=== PATIENT | male | born 1935 | race Caucasian/White ===

== ENCOUNTER 2018-09-17 11:59 | Inpatient (IN) ==
[2018-09-17] MEDS ORDERED: SODIUM CHLORIDE 0.9% 500 ML IV STA ×2 (12:25→13:55)
[2018-09-17 12:47] LABS: Apearance,Urine CLEAR (Clear); Bacteria,Urine Occasional /HPF (Few); Bilirubin,Urine Negative (Negative); Blood, Urine Moderate mg/dL (Negative); Glucose,Urine (UA) Negative (Negative); Ketones,Urine 5 mg/dL (Negative); Nitrite,Urine Negative (Negative); Protein,Urine >=500 MG/DL; RBC,Urine 22 /HPF (0-4); Urine Color Yellow (Yellow); Urine Specific Gravity 1.017 (1.001-1.035); WBC,Urine <1 /HPF (0-6)
[2018-09-17 13:05] LABS: Basophils % 0.1 % (0.0-0.8); Hematocrit 42.6 VOL% (42.0-52.0); Hemoglobin 14.3 GM/DL (14.0-18.0); Immature Granulocytes % 0.3 %; Immature Granulocytes Absolute 0.03 #; Lymphocytes # 0.6 10*3/uL (1.4-4.0); Mean Corpuscular HGB Conc 33.6 GM/DL (32-36); Mean Corpuscular Hemoglobin 32 PG (27-34); Mean Platelet Volume 9.9 FL (9.6-12.0); Monocytes # 0.9 10*3/uL (0.11-0.8); Neutrophils % 84.6 % (38.7-73.9); Platelet Count 120 T/CUMM (130-400); Red Blood Count 4.53 MC/CUMM (3.8-5.5); Red Cell Distribution Width 13.3 % (9.3-17.3); White Blood Count 9.4 T/CUMM (4-12)
[2018-09-17 13:23] LABS: Albumin 3.9 G/DL (3.4-5.0); Bilirubin,Total 1.4 MG/DL (0.2-1.0); Calcium 8.9 MG/DL (8.5-10.1); Osmolality,Calculated 275.7 MOS/KG (273-304); Potassium 3.6 MMOL/L (3.5-5.1)
[2018-09-17] MEDS ORDERED: ACETAMINOPHEN 325 MG TABLET PO PRN (15:53)
[2018-09-17] MEDS ORDERED: ONDANSETRON 4 MG/2 ML VIAL IV PRN (15:53)
[2018-09-17] MEDS ORDERED: KETOCONAZOLE 2% CREAM 30 GM TUBE TOP PRN (15:58)
[2018-09-17] MEDS ORDERED: TRIAMCINOLONE 0.1% CREAM 15 GM TUBE TOP PRN (15:58)
[2018-09-17] MEDS: LISINOPRIL 20 MG TABLET PO SCH (18:44)
[2018-09-17] MEDS: DILTIAZEM CD 180 MG CAPSULE PO SCH (18:47)
[2018-09-17 19:09] LABS: Troponin I 0.406 NG/ML (0.00-0.045)
[2018-09-17] MEDS ORDERED: ENOXAPARIN 40 MG/0.4 ML SYRINGE SUBCUT SCH (21:00)
[2018-09-17] MEDS: SODIUM CHLORIDE 0.9% 1,000 ML IV SCH (21:46)
[2018-09-17 23:19] LABS: Troponin I 0.519 NG/ML (0.00-0.045)
[2018-09-18 07:27] LABS: Albumin 2.6 G/DL (3.4-5.0); Bilirubin,Total 0.8 MG/DL (0.2-1.0); Calcium 7.5 MG/DL (8.5-10.1); Osmolality,Calculated 277.5 MOS/KG (273-304); Potassium 3.3 MMOL/L (3.5-5.1); Total Protein 5.6 G/DL (6.4-8.3)
[2018-09-18 07:41] LABS: Troponin I 0.436 NG/ML (0.00-0.045)
[2018-09-18] MEDS: SODIUM CHLORIDE 0.9% 1,000 ML IV SCH ×2 (08:43→23:58)
[2018-09-18] MEDS: MIRTAZAPINE 30 MG TABLET PO SCH (09:11)
[2018-09-18] MEDS: LISINOPRIL 20 MG TABLET PO SCH (09:11)
[2018-09-18] MEDS: PANTOPRAZOLE 40 MG TABLET PO SCH (09:11)
[2018-09-18] MEDS: DILTIAZEM CD 180 MG CAPSULE PO SCH (10:31)
[2018-09-18] MEDS: LINACLOTIDE 145 MCG CAPSULE PO SCH (10:39)
[2018-09-18] MEDS: POTASSIUM CHLORIDE RIDER 10 MEQ in PREMIX 1 EACH IV SCH ×4 (13:36→18:05)
[2018-09-18] MEDS ORDERED: POTASSIUM CHLORIDE RIDER 10 MEQ in PREMIX 1 EACH IV SCH (18:00)
[2018-09-18] MEDS: FINASTERIDE 5 MG TABLET PO SCH (20:51)
[2018-09-19 04:36] LABS: Basophils % 0.3 % (0.0-0.8); Eosinophils # 0.2 10*3/uL (0.0-0.87); Eosinophils % 2.4 % (0.00-10.9); Hematocrit 35.5 VOL% (42.0-52.0); Hemoglobin 11.9 GM/DL (14.0-18.0); Immature Granulocytes % 0.3 %; Immature Granulocytes Absolute 0.02 #; Lymphocytes # 1.5 10*3/uL (1.4-4.0); Lymphocytes % 22.3 % (21.2-54.2); Mean Corpuscular HGB Conc 33.5 GM/DL (32-36); Mean Corpuscular Hemoglobin 32 PG (27-34); Mean Corpuscular Volume 94.7 FL (87-102); Mean Platelet Volume 10.3 FL (9.6-12.0); Monocytes # 0.5 10*3/uL (0.11-0.8); Monocytes % 6.8 % (1.7-12.7); Neutrophils # 4.6 10*3/uL (1.4-7.4); Neutrophils % 67.9 % (38.7-73.9); Red Blood Count 3.75 MC/CUMM (3.8-5.5); Red Cell Distribution Width 13.6 % (9.3-17.3); White Blood Count 6.7 T/CUMM (4-12)
[2018-09-19 04:49] LABS: Platelet Count 95 T/CUMM (130-400)
[2018-09-19 05:17] LABS: Calcium 7.4 MG/DL (8.5-10.1); Osmolality,Calculated 278.5 MOS/KG (273-304); Potassium 3.6 MMOL/L (3.5-5.1)
[2018-09-19 06:20] LABS: Ovalocytes 1+; Platelet Estimate Adequate
[2018-09-19] MEDS: MIRTAZAPINE 30 MG TABLET PO SCH (09:15)
[2018-09-19] MEDS: PANTOPRAZOLE 40 MG TABLET PO SCH (09:15)
[2018-09-19] MEDS: LISINOPRIL 20 MG TABLET PO SCH (09:15)
[2018-09-19] MEDS: LINACLOTIDE 145 MCG CAPSULE PO SCH (09:19)
[2018-09-19] MEDS: SODIUM CHLORIDE 0.9% 1,000 ML IV SCH (10:14)
[2018-09-19] MEDS: amLODIPine 5 MG TABLET PO SCH (11:08)
[2018-09-19] MEDS ORDERED: ERGOCALCIFEROL 50,000 UNIT CAPSULE PO SCH (14:30)
[2018-09-19] MEDS: FINASTERIDE 5 MG TABLET PO SCH (20:57)
[2018-09-19] MEDS: TAMSULOSIN 0.4 MG CAPSULE PO SCH (20:57)
[2018-09-20 05:45] LABS: Free T4 (Free Thyroxine) 1.03 NG/DL (0.76-1.46)
[2018-09-20] MEDS: LISINOPRIL 20 MG TABLET PO SCH (08:25)
[2018-09-20] MEDS: PANTOPRAZOLE 40 MG TABLET PO SCH (08:25)
[2018-09-20] MEDS: amLODIPine 5 MG TABLET PO SCH (08:25)
[2018-09-20] MEDS: MIRTAZAPINE 30 MG TABLET PO SCH (08:25)
[2018-09-20] MEDS: LINACLOTIDE 145 MCG CAPSULE PO SCH (08:28)
[2018-09-20] MEDS: TRIAMCINOLONE 0.1% CREAM 15 GM TUBE TOP SCH ×2 (13:50→21:14)
[2018-09-20] MEDS ORDERED: TUBERCULIN SKIN TEST 0.1 ML SYRINGE INTRADERM ONE (15:18)
[2018-09-20] MEDS: hydrALAZINE 25 MG TABLET PO SCH ×2 (15:42→21:12)
[2018-09-20] MEDS: FINASTERIDE 5 MG TABLET PO SCH (21:12)
[2018-09-20] MEDS: TAMSULOSIN 0.4 MG CAPSULE PO SCH (21:12)
[2018-09-21 06:38] LABS: Calcium 8.8 MG/DL (8.5-10.1)
[2018-09-21 06:44] LABS: Basophils % 0.4 % (0.0-0.8); Eosinophils # 0.5 10*3/uL (0.0-0.87); Eosinophils % 5.8 % (0.00-10.9); Hematocrit 43.6 VOL% (42.0-52.0); Immature Granulocytes % 0.4 %; Immature Granulocytes Absolute 0.03 #; Lymphocytes # 1.7 10*3/uL (1.4-4.0); Lymphocytes % 21.5 % (21.2-54.2); Mean Corpuscular Hemoglobin 31 PG (27-34); Mean Corpuscular Volume 93.8 FL (87-102); Monocytes # 0.6 10*3/uL (0.11-0.8); Monocytes % 7.3 % (1.7-12.7); Neutrophils % 64.6 % (38.7-73.9); Platelet Count 113 T/CUMM (130-400); Red Cell Distribution Width 13.6 % (9.3-17.3); White Blood Count 7.7 T/CUMM (4-12)
[2018-09-21 06:45] LABS: Hemoglobin 14.4 GM/DL (14.0-18.0); Red Blood Count 4.65 MC/CUMM (3.8-5.5)
[2018-09-21 08:20] VITALS: BP 149/69
[2018-09-21] MEDS ORDERED: ASPIRIN EC 81 MG TABLET PO SCH (09:00)
[2018-09-21] MEDS: MIRTAZAPINE 30 MG TABLET PO SCH (09:20)
[2018-09-21] MEDS: hydrALAZINE 25 MG TABLET PO SCH (09:20)
[2018-09-21] MEDS: LISINOPRIL 20 MG TABLET PO SCH (09:20)
[2018-09-21] MEDS: amLODIPine 5 MG TABLET PO SCH (09:20)
[2018-09-21] MEDS: TRIAMCINOLONE 0.1% CREAM 15 GM TUBE TOP SCH (09:22)
[2018-09-21] MEDS: LINACLOTIDE 145 MCG CAPSULE PO SCH (09:22)
[2018-09-21] MEDS ORDERED: ROSUVASTATIN 20 MG TABLET PO SCH (21:00)
== END 2018-09-21 14:10 | disposition swing bed (61) | DRG 726 ==
LOC: EDUNIT# → EDBD → N.ED 11:59 → N.EDINP 15:20 → SUATTDRO 15:20 → N.5E 17:45
PROVIDERS: ADMIT Internal Medicine; ATTEND Internal Medicine

== ENCOUNTER 2019-01-18 16:25 | Inpatient (IN) ==
[2019-01-18] MEDS ORDERED: MAGNESIUM SULF RIDER 4 GM in PREMIX 1 EACH IV PRN (17:30)
[2019-01-18] MEDS ORDERED: ACETAMINOPHEN 325 MG TABLET PO PRN (17:30)
[2019-01-18] MEDS ORDERED: DOCUSATE SODIUM 100 MG CAPSULE PO PRN (17:30)
[2019-01-18] MEDS ORDERED: ZALEPLON 5 MG CAPSULE PO PRN (17:30)
[2019-01-18] MEDS ORDERED: MAGNESIUM SULF RIDER 2 GM in PREMIX 1 EACH IV PRN (17:30)
[2019-01-18 18:29] LABS: Basophils # 0.1 10*3/uL (0.0-0.2); Basophils % 0.7 % (0.0-0.8); Eosinophils # 1.1 10*3/uL (0.0-0.87); Eosinophils % 14.8 % (0.00-10.9); Hematocrit 38.8 VOL% (42.0-52.0); Hemoglobin 12.7 GM/DL (14.0-18.0); Immature Granulocytes % 0.1 %; Immature Granulocytes Absolute 0.01 #; Lymphocytes # 1.9 10*3/uL (1.4-4.0); Lymphocytes % 25.2 % (21.2-54.2); Mean Corpuscular HGB Conc 32.7 GM/DL (32-36); Mean Corpuscular Volume 95.1 FL (87-102); Mean Platelet Volume 10.3 FL (9.6-12.0); Neutrophils % 52.2 % (38.7-73.9); Platelet Count 105 T/CUMM (130-400); Red Blood Count 4.08 MC/CUMM (3.8-5.5); Red Cell Distribution Width 13.7 % (9.3-17.3); White Blood Count 7.6 T/CUMM (4-12)
[2019-01-18 18:48] LABS: Albumin 3.9 G/DL (3.4-5.0); Bilirubin,Total 0.6 MG/DL (0.2-1.0); Osmolality,Calculated 278.4 MOS/KG (273-304); Total Protein 7.8 G/DL (6.4-8.3)
[2019-01-18 19:11] LABS: Eosinophils 13 % (0-10); Lymphocytes 29 % (20-55); Segmented Neutrophils 50 % (50-85); Total Cells Counted 100
[2019-01-18 19:12] LABS: Anisocytosis 1+; Atypical Lymphocytes 1+; Elliptocytes Few; Macrocytosis 1+; Platelet Estimate Normal; Poikilocytosis Few
[2019-01-18] MEDS: PIPERACILLIN/TAZOBACTAM 3,375 MG in SODIUM CHLORIDE 0.9% 100 ML IV SCH (20:33)
[2019-01-18 21:19] LABS: Apearance,Urine CLEAR (Clear); Bilirubin,Urine Negative (Negative); Blood, Urine Small mg/dL (Negative); Glucose,Urine (UA) Negative (Negative); Ketones,Urine Negative (Negative); Mucus,Urine Occasional /LPF (Occasional); Nitrite,Urine Negative (Negative); Protein,Urine 30 MG/DL; RBC,Urine 8 /HPF (0-4); Urine Color Yellow (Yellow); Urine Specific Gravity 1.014 (1.001-1.035); Urine Urobilinogen < 2.0 EU/DL (0.2-1.0)
[2019-01-19] MEDS: VANCOMYCIN INJ 1,000 MG in SODIUM CHLORIDE 0.9% 250 ML IV SCH ×3 (00:16→23:05)
[2019-01-19] MEDS: PIPERACILLIN/TAZOBACTAM 3,375 MG in SODIUM CHLORIDE 0.9% 100 ML IV SCH ×3 (03:48→21:01)
[2019-01-19] MEDS ORDERED: LINACLOTIDE 145 MCG CAPSULE PO PRN (07:16)
[2019-01-19] MEDS ORDERED: ACETAMINOPHEN 325 MG TABLET PO PRN (07:16)
[2019-01-19] MEDS ORDERED: KETOCONAZOLE 2% CREAM 30 GM TUBE TOP PRN (07:16)
[2019-01-19] MEDS ORDERED: ERGOCALCIFEROL 50,000 UNIT CAPSULE PO SCH (07:30)
[2019-01-19] MEDS: TAMSULOSIN 0.4 MG CAPSULE PO SCH ×2 (10:33→21:00)
[2019-01-19] MEDS: amLODIPine 5 MG TABLET PO SCH (10:33)
[2019-01-19] MEDS: MULTIVITAMIN (OCUVITE) TABLET PO SCH ×2 (10:33→21:00)
[2019-01-19] MEDS: ONDANSETRON 4 MG/2 ML VIAL IV PRN (10:34)
[2019-01-19] MEDS: hydrALAZINE 25 MG TABLET PO SCH ×3 (10:34→21:00)
[2019-01-19] MEDS: ASCORBIC ACID 500 MG TABLET PO SCH ×2 (10:34→21:00)
[2019-01-19] MEDS ORDERED: diphenhydrAMINE CAP 25 MG CAPSULE PO PRN (16:37)
[2019-01-19] MEDS ORDERED: MAGNESIUM HYDROXIDE SUSP 30 ML UDCUP PO PRN (16:37)
[2019-01-19] MEDS: MIRTAZAPINE 30 MG TABLET PO SCH (20:59)
[2019-01-19] MEDS: ASPIRIN EC 81 MG TABLET PO SCH (21:00)
[2019-01-19] MEDS: ROSUVASTATIN 20 MG TABLET PO SCH (21:00)
[2019-01-19] MEDS: FINASTERIDE 5 MG TABLET PO SCH (21:00)
[2019-01-19] MEDS: LISINOPRIL 20 MG TABLET PO SCH (21:01)
[2019-01-20] MEDS: PIPERACILLIN/TAZOBACTAM 3,375 MG in SODIUM CHLORIDE 0.9% 100 ML IV SCH ×3 (03:14→22:15)
[2019-01-20 05:58] LABS: Basophils # 0.1 10*3/uL (0.0-0.2); Basophils % 0.8 % (0.0-0.8); Eosinophils # 1.3 10*3/uL (0.0-0.87); Eosinophils % 16.8 % (0.00-10.9); Hematocrit 36.5 VOL% (42.0-52.0); Hemoglobin 11.7 GM/DL (14.0-18.0); Immature Granulocytes % 0.3 %; Immature Granulocytes Absolute 0.02 #; Lymphocytes # 1.8 10*3/uL (1.4-4.0); Lymphocytes % 22.6 % (21.2-54.2); Mean Corpuscular HGB Conc 32.1 GM/DL (32-36); Mean Corpuscular Volume 95.8 FL (87-102); Mean Platelet Volume 10.8 FL (9.6-12.0); Monocytes % 7.3 % (1.7-12.7); Neutrophils % 52.2 % (38.7-73.9); Platelet Count 111 T/CUMM (130-400); Red Blood Count 3.81 MC/CUMM (3.8-5.5); Red Cell Distribution Width 13.5 % (9.3-17.3)
[2019-01-20 06:34] LABS: Calcium 8.8 MG/DL (8.5-10.1); Osmolality,Calculated 288.7 MOS/KG (273-304)
[2019-01-20 06:45] LABS: Band Neutrophils 1 % (0-10); Segmented Neutrophils 54 % (50-85); Total Cells Counted 100
[2019-01-20 06:46] LABS: Eosinophils 12 % (0-10); Hypochromasia 2+; Lymphocytes 25 % (20-55); Platelet Estimate Decreased
[2019-01-20] MEDS: TAMSULOSIN 0.4 MG CAPSULE PO SCH ×2 (08:50→21:18)
[2019-01-20] MEDS: POTASSIUM CHLORIDE 20 MEQ TABLET PO PRN (08:50)
[2019-01-20] MEDS: MULTIVITAMIN (OCUVITE) TABLET PO SCH ×2 (08:51→21:19)
[2019-01-20] MEDS: hydrALAZINE 25 MG TABLET PO SCH ×3 (08:51→21:19)
[2019-01-20] MEDS: amLODIPine 5 MG TABLET PO SCH (08:51)
[2019-01-20] MEDS: ASCORBIC ACID 500 MG TABLET PO SCH ×2 (08:51→21:18)
[2019-01-20] MEDS: VANCOMYCIN INJ 1,000 MG in SODIUM CHLORIDE 0.9% 250 ML IV SCH (12:35)
[2019-01-20] MEDS: LISINOPRIL 20 MG TABLET PO SCH (21:18)
[2019-01-20] MEDS: MIRTAZAPINE 30 MG TABLET PO SCH (21:18)
[2019-01-20] MEDS: ASPIRIN EC 81 MG TABLET PO SCH (21:18)
[2019-01-20] MEDS: ROSUVASTATIN 20 MG TABLET PO SCH (21:18)
[2019-01-20] MEDS: FINASTERIDE 5 MG TABLET PO SCH (21:23)
[2019-01-21] MEDS: VANCOMYCIN INJ 1,000 MG in SODIUM CHLORIDE 0.9% 250 ML IV SCH ×2 (02:13→12:18)
[2019-01-21 04:41] LABS: Basophils # 0.1 10*3/uL (0.0-0.2); Basophils % 0.5 % (0.0-0.8); Eosinophils % 9.4 % (0.00-10.9); Hematocrit 38.3 VOL% (42.0-52.0); Hemoglobin 12.3 GM/DL (14.0-18.0); Immature Granulocytes % 0.4 %; Immature Granulocytes Absolute 0.04 #; Lymphocytes # 1.3 10*3/uL (1.4-4.0); Lymphocytes % 12.5 % (21.2-54.2); Mean Corpuscular HGB Conc 32.1 GM/DL (32-36); Mean Corpuscular Volume 94.6 FL (87-102); Mean Platelet Volume 10.4 FL (9.6-12.0); Monocytes % 6.9 % (1.7-12.7); Neutrophils % 70.3 % (38.7-73.9); Platelet Count 106 T/CUMM (130-400); Red Blood Count 4.05 MC/CUMM (3.8-5.5); Red Cell Distribution Width 13.6 % (9.3-17.3); White Blood Count 10.7 T/CUMM (4-12)
[2019-01-21 05:00] LABS: Calcium 8.8 MG/DL (8.5-10.1); Osmolality,Calculated 284.1 MOS/KG (273-304)
[2019-01-21] MEDS: PIPERACILLIN/TAZOBACTAM 3,375 MG in SODIUM CHLORIDE 0.9% 100 ML IV SCH ×2 (06:00→14:37)
[2019-01-21] MEDS: ONDANSETRON 4 MG/2 ML VIAL IV PRN (06:25)
[2019-01-21] MEDS: TAMSULOSIN 0.4 MG CAPSULE PO SCH (08:40)
[2019-01-21] MEDS: ASCORBIC ACID 500 MG TABLET PO SCH (08:40)
[2019-01-21] MEDS: MULTIVITAMIN (OCUVITE) TABLET PO SCH (08:40)
[2019-01-21] MEDS: amLODIPine 5 MG TABLET PO SCH (08:41)
[2019-01-21] MEDS: POTASSIUM CHLORIDE 20 MEQ TABLET PO PRN (08:41)
[2019-01-21] MEDS: hydrALAZINE 25 MG TABLET PO SCH ×2 (08:41→14:58)
[2019-01-21 12:04] VITALS: BP 140/67
[2019-01-21] MEDS ORDERED: LEVOFLOXACIN 750 MG TABLET PO SCH (14:30)
[2019-01-21] MEDS ORDERED: AMOXICILLIN/CLAV 875 MG TABLET PO SCH (21:00)
== END 2019-01-21 16:35 | disposition home health service (06) | DRG 863 ==
LOC: N.TELES 16:56
PROVIDERS: ADMIT Internal Medicine Clinical Cardiac Electrophysiology; ATTEND Internal Medicine Clinical Cardiac Electrophysiology